=== PATIENT | male | born 1985 | race Caucasian/White ===

== ENCOUNTER 2018-04-10 10:14 | Emergency (ER) | payer SELFPAY ==
[2018-04-10] MEDS ORDERED: Ketorolac Tromethamine 60 MG/2 ML VIAL ONE (10:32)
--- NOTE | 2018-04-10 11:12 | RAD ---
RADIOGRAPH CHEST AND LEFT RIBS 4 VIEWS: HISTORY: A 33-year-old male with traumatic left chest/rib pain. FINDINGS: The visualized lung felix are clear. The cardiomediastinal silhouette and hilar shadows are normal. The lateral costophrenic angles are sharp. The osseous structures appear normal. There is no pneu mothorax. IMPRESSION: Negative. jn [] POS: [facility]
== END 2018-04-10 11:05 | disposition home or self-care (01) ==
LOC: MADERS 10:14
DX: S20.212A Contusion of left front wall of thorax, initial encounter (principal); S80.211A Abrasion, right knee, initial encounter; W55.22XA Struck by cow, initial encounter
CPT/HCPCS: 96372; J1885

== ENCOUNTER 2020-01-24 15:09 | Emergency (ER) | payer SELFPAY ==
--- NOTE | 2020-01-24 16:00 | RAD ---
XR Chest 1 View Portable History: Cough Comparison: None Findings: Lungs are clear. No pneumothorax or effusion. Cardiac silhouette and mediastinal contours a re within normal limits. No acute osseous abnormality. Impression: No acute intrathoracic abnormality.
[2020-01-25 02:01] LABS: SARS-CoV-2 MS2 Positive; SARS-CoV-2 N Gene Positive; SARS-CoV-2 S Gene Positive; SARS-CoV-2 by NAA DETECTED (NotDetected); SARS-CoV-2 orf1ab Positive
== END 2020-01-24 16:17 | disposition home or self-care (01) ==
LOC: MADERS 15:09
DX: U07.1 COVID-19 (principal); F17.210 Nicotine dependence, cigarettes, uncomplicated
CPT/HCPCS: 71045; 87635; U0003

== ENCOUNTER 2020-02-29 12:08 | Emergency (ER) | payer SELFPAY ==
[2020-02-29] MEDS ORDERED: Lidocaine 1% 20 ML MDV ONE (12:27)
[2020-02-29] MEDS ORDERED: Bacitracin 1 PK ONE (12:41)
[2020-02-29] MEDS ORDERED: Boostrix 0.5 ML (Tdap) VIAL ONE (12:42)
== END 2020-02-29 13:05 | disposition home or self-care (01) ==
LOC: MADERS 12:08
DX: S61.210A Laceration without foreign body of right index finger without damage to nail, initial encounter (principal); Z23 Encounter for immunization; F17.220 Nicotine dependence, chewing tobacco, uncomplicated; W26.0XXA Contact with knife, initial encounter
CPT/HCPCS: 12001; 90471; 90715

== ENCOUNTER 2022-06-09 20:02 | Emergency (ER) | payer BC, SELFPAY ==
[2022-06-09] MEDS ORDERED: Acetaminophen 500 MG TAB ONE (21:14)
[2022-06-09] MEDS ORDERED: Ketorolac Tromethamine 30 MG/ML VIAL ONE (21:14)
[2022-06-09] MEDS ORDERED: Bacitracin 1 PK ONE (21:59)
== END 2022-06-09 22:08 | disposition home or self-care (01) ==
LOC: MADERS 20:02
DX: S80.812A Abrasion, left lower leg, initial encounter (principal); M25.532 Pain in left wrist; F17.220 Nicotine dependence, chewing tobacco, uncomplicated; W11.XXXA Fall on and from ladder, initial encounter
CPT/HCPCS: 96372; J1885

== ENCOUNTER 2022-12-01 09:52 | Emergency (ER) | payer BC ==
[2022-12-01] MEDS ORDERED: Lidocaine 1% (PF) 30 ML VIAL ONE (10:08)
[2022-12-01] MEDS ORDERED: Acetaminophen 500 MG TAB ONE (10:26)
[2022-12-01] MEDS ORDERED: Ondansetron ODT 4 MG TAB ONE (10:55)
[2022-12-01] MEDS ORDERED: Bacitracin 1 PK ONE (10:59)
== END 2022-12-01 11:23 | disposition home or self-care (01) ==
LOC: MADERS 09:52
DX: S61.011A Laceration without foreign body of right thumb without damage to nail, initial encounter (principal); W26.8XXA Contact with other sharp object(s), not elsewhere classified, initial encounter; F17.220 Nicotine dependence, chewing tobacco, uncomplicated
CPT/HCPCS: 12001; J2001; Q0162